=== PATIENT | female | born 1990 | race American Indian/Alaskan Native ===

== ENCOUNTER 2017-10-26 12:42 | Emergency (ER) | payer SELFPAY ==
[2017-10-26 12:55] VITALS: BP 105/66
[2017-10-26 13:45] LABS: HCG Qualitative,Urine Negative (Negative)
== END 2017-10-26 14:25 | disposition left against medical advice (07) ==
LOC: ED 12:42
DX: M79.601 Pain in right arm (principal); Z53.21 Procedure and treatment not carried out due to patient leaving prior to being seen by health care provider
CPT/HCPCS: 81025